=== PATIENT | female | born 1965 | race African-American/Black ===

== ENCOUNTER 2018-08-11 11:14 | Emergency (ER) | payer MEDICAID ==
[~2018-08-11] VITALS: Ht 167.6 cm; Wt 86.0 kg
[2018-08-11] MEDS ORDERED: HYDROCODONE/ACETAMINOPHEN 5/325MG TABLET PO ONE (11:45)
[2018-08-11] MEDS ORDERED: ONDANSETRON 4MG ODT PO ONE (11:45)
[2018-08-11 13:28] VITALS: BP 140/91
== END 2018-08-11 13:29 | disposition home or self-care (01) ==
LOC: ER 11:38
DX: S82.402A Unspecified fracture of shaft of left fibula, initial encounter for closed fracture (principal); I10 Essential (primary) hypertension; E11.9 Type 2 diabetes mellitus without complications; Z90.710 Acquired absence of both cervix and uterus; X50.1XXA Overexertion from prolonged static or awkward postures, initial encounter; Y93.89 Activity, other specified; Y92.89 Other specified places as the place of occurrence of the external cause; Y99.8 Other external cause status
CPT/HCPCS: 29515; 73562; 73590; 73610; 82962; 99283; Q0162

== ENCOUNTER 2019-10-05 13:47 | Emergency (ER) | payer MEDICAID ==
[~2019-10-05] VITALS: Ht 162.6 cm; Wt 89.0 kg
[2019-10-05 13:50] VITALS: BP 153/93
== END 2019-10-05 14:37 | disposition left against medical advice (07) ==
LOC: ER 13:47
DX: R42 Dizziness and giddiness (principal); Z53.21 Procedure and treatment not carried out due to patient leaving prior to being seen by health care provider